=== PATIENT | female | born 1970 | race American Indian/Alaskan Native ===

== ENCOUNTER 2016-07-08 08:38 | Outpatient (CLI) | payer OTHER ==
--- NOTE | 2016-07-08 11:02 | Mammography Report ---
Screening mammogram: Baseline exam. Routine views demonstrates circumscribed nodules in the upper outer portions of each breast. No suspicious characteristics. In the central right breast as well as in the anterior right breast however there are 2 accumulations of microcalcifications which appear somewhat pleomorphic. There is also a small pleomorphic grouping of calcifications in the central superior left breast. The remainder the breasts are generally fatty replaced and unremarkable bilaterally. CAD used. Impression: Indeterminate bilateral microcalcifications. Recommendation: Magnification views bilaterally. BI-RADS CATEGORY: 0 = Needs additional imaging evaluation ACR BI-RADS MAMMOGRAPHIC CODES: 0 = Needs additional imaging evaluation; 1 = Negative; 2 = Benign; 3 = Probably benign; 4 = Suspicious; 5 = Malignant; 6 = Known biopsy-proven malignancy COMMENT: 1. Dense breast tissue, i.e., adenosis, fibrocystic changes, etc., may obscure an underlying neoplasm. 2. Approximately 10% of cancers are not detected with mammography. 3. A negative mammography report should not delay biopsy if a clinically suspicious mass is present. The
== END 2016-07-08 08:39 | disposition home or self-care (01) ==
LOC: SPVWC 08:38
PROVIDERS: ATTEND Obstetrics & Gynecology
DX: Z12.31 Encounter for screening mammogram for malignant neoplasm of breast (principal)
CPT/HCPCS: 77067; G0202

== ENCOUNTER 2016-08-30 10:01 | Outpatient (CLI) | payer OTHER ==
--- NOTE | 2016-08-30 14:08 | Mammography Report ---
BILATERAL DIGITAL DIAGNOSTIC MAMMOGRAM and RIGHT BREAST ULTRASOUND: 08/30/16 10:01:00 CLINICAL: Recalled for bilateral calcifications and right asymmetries. COMPARISON:07/08/16 FINDINGS: LM and CC magnification views of each breast were performed and demonstrate several groups of calcifications in both breasts. Most of the calcifications have similar morphology. The largest group is in the right breast in a retroareolar location and the calcifications are larger and more dense. No associated mass or architectural distortion. 2 oval right upper outer circumscribed densities persist on the spot views. Ultrasound of the upper outer right breast was performed and demonstrated to enter parenchymal lymph nodes with central fat and benign morphology. The are located at 9 o'clock 15 cm from the nipple and at 10 o'clock 15 cm from the nipple and measure 9 x 5 x 6 mm and 7 x 4 x 7 mm respectively. IMPRESSION: Probably benign bilateral calcifications and two right upper outer benign intraparenchymal lymph nodes. BI-RADS CATEGORY: 3 -- Probably Benign RECOMMENDATION: 6 month follow-up magnification views of each breast. I discussed the findings with the patient and discussed with her the importance of her returning in six months for followup to determine if calcifications are changing over time. ACR BI-RADS MAMMOGRAPHIC CODES: 0 = Needs additional imaging evaluation; 1 = Negative; 2 = Benign; 3 = Probably benign; 4 = Suspicious; 5 = Malignant; 6 = Known biopsy-proven malignancy COMMENT: 1. Dense breast tissue, i.e., adenosis, fibrocystic changes, etc., may obscure an underlying neoplasm. 2. Approximately 10% of cancers are not detected with mammography. 3. A negative mammography report should not delay biopsy if a clinically suspicious mass is present. COMMENT: Patient follow-up letters are generated by our [employer] application.
--- NOTE | 2016-08-30 14:12 | Ultrasound Report ---
BILATERAL DIGITAL DIAGNOSTIC MAMMOGRAM and RIGHT BREAST ULTRASOUND: 08/30/16 10:01:00 CLINICAL: Recalled for bilateral calcifications and right asymmetries. COMPARISON:07/08/16 FINDINGS: LM and CC magnification views of each breast were performed and demonstrate several groups of calcifications in both breasts. Most of the calcifications have similar morphology. The largest group is in the right breast in a retroareolar location and the calcifications are larger and more dense. No associated mass or architectural distortion. 2 oval right upper outer circumscribed densities persist on the spot views. Ultrasound of the upper outer right breast was performed and demonstrated to enter parenchymal lymph nodes with central fat and benign morphology. The are located at 9 o'clock 15 cm from the nipple and at 10 o'clock 15 cm from the nipple and measure 9 x 5 x 6 mm and 7 x 4 x 7 mm respectively. IMPRESSION: Probably benign bilateral calcifications and two right upper outer benign intraparenchymal lymph nodes. BI-RADS CATEGORY: 3 -- Probably Benign RECOMMENDATION: 6 month follow-up magnification views of each breast. I discussed the findings with the patient and discussed with her the importance of her returning in six months for followup to determine if calcifications are changing over time.
== END 2016-08-30 10:02 | disposition home or self-care (01) ==
LOC: SPVWC 10:01
PROVIDERS: ATTEND Obstetrics & Gynecology
DX: R92.1 Mammographic calcification found on diagnostic imaging of breast (principal)
CPT/HCPCS: 76642; G0204; 77066